=== PATIENT | female | born 1995 | race Caucasian/White ===

== ENCOUNTER 2018-11-01 07:47 | Day surgery (SDC) | payer BC ==
[~2018-11-01 07:47] MED LIST: Midazolam 1 MG/ML 2 ML SDV ONE; Propofol 200 MG/20 ML SDV ONE; fentaNYL 250 MCG/5 ML SDV ONE
[2018-11-01] MEDS ORDERED: Acetaminophen/HYDROcodone 325-5 MG Tab PO PRN (08:00)
[2018-11-01] MEDS ORDERED: ceFAZolin 2 GM in Premix Bag 1 BAG IV ONE (08:00)
[2018-11-01] MEDS ORDERED: Bupivacaine 0.25%/EPINEPHrine 1:200,000 10 ML SDV INJECT ONE (08:00)
[2018-11-01] MEDS ORDERED: Lactated Ringers 1,000 ML IV SCH (08:00)
[2018-11-01] MEDS ORDERED: Scopolamine 1.5 MG Transdermal Patch TRDERM PRN (08:40)
--- NOTE | 2018-11-01 08:57 | PCM.PREANE ---
Preanesthetic Assessment - Anesthesia/Transfusion/Family Hx Anesthesia History: Prior Anesthesia Without Reaction Type of Anesthesia Reaction: Other (see below) (ponv after ortho surgery as a child) Family History of Anesthesia Reaction: No Transfusion History: No Prior Transfusion(s) - Review of Systems General: No Symptoms Pulmonary: No Symptoms Cardiovascular: No Symptoms Gastrointestinal: No Symptoms Neurological: No Symptoms Other: Reports: Anxiety - Physical Assessment NPO Status Date: 10/31/18 Height: 5 ft 7 in Weight: 77.111 kg ASA Class: 2 Mental Status: Alert & Oriented x3 Airway Class: Mallampati = 1 Dentition: Reports: Normal Dentition ROM/Head Extension: Full Lungs: Clear to Auscultation, Normal Respiratory Effort Cardiovascular: Regular Rate, Regular Rhythm - Lab Values: Laboratory Last Values Urine HCG, Qual NEGATIVE (NEGATIVE) 11/01/18 08:30 - Allergies Allergies/Adverse Reactions: Allergies Allergy/AdvReac Type Severity Reaction Status Date / Time No Known Allergies Allergy Verified 10/29/18 12:40 - Blood Blood Available: No - Anesthesia Plan Pre-Op Medication Ordered: Anxiolytic (ativan po last night, versed in pre op holding, scop patch) - Acknowledgements Anesthesia Type Planned: General Anesthesia Pt an Appropriate Candidate for the Planned Anesthesia: Yes Alternatives and Risks of Anesthesia Discussed w Pt/Guardian: Yes Pt/Guardian Understands and Agrees with Anesthesia Plan: Yes Additional Comments: PMH: occasional smoker, anxiety PLAN: GET PreAnesthesia Questionnaire HEENT History: Reports: Other (See Below) Other HEENT History: wears contacts LOBBY CONCIERGE History: Reports: Other (See Below) Other OB/BYN History: polands syndrome Musculoskeletal History: Reports: Fracture Other Musculoskeletal History: polands syndrome - Past Surgical History Head Surgeries/Procedures: Reports: None HEENT Surgical History: Reports: Tonsillectomy Musculoskeletal Surgical History: Reports: ORIF Other Musculoskeletal Surgeries/Procedures:: ORIF rt arm - SUBSTANCE USE Smoking Status *Q: Current Some Day Smoker Tobacco Use Within Last Twelve Months: Cigarettes Recreational Drug Use History: No - HOME MEDS Home Medications: Home Meds Clindamycin Phosphate 1 swab TOP ASDIRECTED PRN 10/29/18 [History] Nuvaring 1 device VAG ONETIME 10/29/18 [History] Spironolactone 50 mg PO DAILY 10/29/18 [History] buPROPion HCl [Wellbutrin Xl] 150 mg PO DAILY 10/29/18 [History] - CURRENT (IN HOUSE) MEDS Current Meds: Current Medications Hydrocodone Bitart/Acetaminophen ([place] 325-5 Mg) 1 tab PO Q4H PRN PRN Reason: Pain Lactated Ringer's (Ringers, Lactated) 1,000 mls @ 125 mls/hr IV ASDIRECTED KIN Scopolamine (Transderm-Scop) 1.5 mg TRDERM Q72H PRN PRN Reason: Nausea/Vomiting Discontinued Medications Bupivacaine HCl/Epinephrine Bitart (Marcaine 0.25%/Epinephrine 1:200,000) 10 ml INJECT ONETIME ONE Stop: 11/01/18 08:01 Fentanyl (Sublimaze) Confirm Administered Dose 250 mcg .ROUTE .STK-MED ONE Stop: 11/01/18 07:21 Cefazolin Sodium/Dextrose 2 gm (/ Premix) 50 mls @ 100 mls/hr IV ONETIME ONE Stop: 11/01/18 08:29 Midazolam HCl (Versed 1 Mg/Ml) Confirm Administered Dose 2 mg .ROUTE .STK-MED ONE Stop: 11/01/18 07:21 Propofol (Diprivan 20 Ml) Confirm Administered Dose 200 mg .ROUTE .STK-MED ONE Stop: 11/01/18 07:21
[2018-11-01] MEDS ORDERED: Gentamicin 40 MG/ML 2 ML Vial ONE (09:03)
[2018-11-01] MEDS ORDERED: EPINEPHrine 1 MG/ML SDV ONE (09:03)
[2018-11-01] MEDS ORDERED: Bupivacaine 25%/EPINEPHrine/PF 30 ML ONE (09:04)
[2018-11-01] MEDS ORDERED: ceFAZolin 1 GM Vial ONE (09:04)
[2018-11-01] MEDS ORDERED: fentaNYL 100 MCG/2 ML SDV IVPUSH PRN (10:50)
[2018-11-01] MEDS ORDERED: Meperidine PF 25 MG/ML Syringe IVPUSH ONE (10:50)
[2018-11-01] MEDS ORDERED: Promethazine 25 MG/ML SDV IM ONE (10:50)
[2018-11-01] MEDS ORDERED: HYDROmorphone 2 MG/ML SDV IVPUSH ONE (10:50)
[2018-11-01] MEDS ORDERED: Ondansetron 4 MG/2 ML SDV IVPUSH ONE (10:50)
[2018-11-01] MEDS ORDERED: Ondansetron 4 MG/2 ML SDV ONE (11:27)
[2018-11-01] MEDS ORDERED: Dexamethasone 4 MG/ML 5 ML MDV ONE (11:27)
[2018-11-01] MEDS ORDERED: HYDROmorphone 2 MG/ML Syringe ONE (12:11)
[2018-11-01] MEDS ORDERED: Neostigmine Methylsulfate 1 MG/ML 5 ML Syringe ONE (12:16)
[2018-11-01] MEDS ORDERED: Glycopyrrolate 0.2 MG/ML SDV ONE (12:16)
[2018-11-01] MEDS: fentaNYL 100 MCG/2 ML SDV IVPUSH PRN ×4 (12:43→13:09)
--- NOTE | 2018-11-01 13:44 | PCM.POSTAN ---
POST ANESTHESIA ASSESSMENT - MENTAL STATUS Mental Status: Alert, Oriented - RESPIRATORY Respiratory Status: Respiratory Rate WNL, Airway Patent, O2 Saturation Stable - CARDIOVASCULAR CV Status: Pulse Rate WNL, Blood Pressure Stable - GASTROINTESTINAL GI Status: No Symptoms - PAIN Pain Score: 3 - POST OP HYDRATION Hydration Status: Adequate & Stable - OBSERVATIONS Free Text/Narrative:: Pt stable for discharge to phase II recovery.
[2018-11-01] MEDS ORDERED: Cyclobenzaprine 5 MG Tab PO ONE (14:05)
--- NOTE | 2018-11-04 12:29 | PCM.OPNOTE ---
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
--- NOTE | 2018-11-04 20:07 | OR ---
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 IT APPLICATIONS ANALYST: EDMOND Goff REASON FOR AND ROLE OF IT APPLICATIONS ANALYST: Retraction, prepping, draping, positioning and closure assistance. ANESTHESIA: General ET tube with local. INDICATIONS: Ms. Obrien is a 23-year-old female, seen today in evaluation for bilateral breast reconstruction. 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 Risks and benefits of breast reconstruction bilaterally with differential implants and radial scoring were discussed with her and she was in agreement to proceed. Risks were including, but not limited to, bleeding, infection, damage to underlying or overlying structures, possible need for future interventions, and possible scarring. Prior authorization was obtained from her insurance [employer] as well. PROCEDURE IN DETAIL: After informed consent was obtained and placed on the chart, the patient was brought to the operating theater and laid in supine position. After adequate general anesthesia was obtained, the area was prepped and draped, a time-out was completed to confirm side and site. Attention was first paid to the right breast. An inframammary fold incision was made approximately 6-1/2 cm from the nipple itself. Dissection was then carried into the submuscular plane on the right side. Pectoralis muscle was present and intact. Dissection was carried into the submuscular plane and the inferior aspect of the pectoralis muscle was transected under direct visualization using lighted mammary retractor and electrocautery. Once adequately transected, attention was then paid to copious irrigation of the developed submuscular pocket. Once adequately irrigated, 3 epinephrine-soaked laps were placed, and attention was then paid to dissection on the opposite breast. Attention was then paid to the left breast. An inframammary fold incision was also made here slightly lower than the current inframammary fold to allow expansion and lowering of the tuberous breast anomaly. This was made again 6.5 cm away from the nipple-areolar complex. Dissection was then carried into the submuscular plane and a submuscular pocket was developed. The inferior muscle was transected taking care to maintain the sternal attachments. Once adequately transected here, meticulous hemostasis was obtained and the remainder of the pocket was dissected. Once adequately dissected here and meticulous hemostasis had been obtained, the area was irrigated and 3 additional epinephrine-soaked laps were placed on the left side. Attention was paid to the subglandular dissection just above the muscle and radial scoring of the gland itself was undertaken. Once this was completed in a satisfactory pattern, an epinephrine-soaked lap was placed here. Attention was then paid back to the right breast and the pocket was again evaluated. Once adequately prepped, attention was then paid to removal of the epinephrine-soaked laps, meticulous hemostasis, and copious irrigation with triple antibiotic solution. 3-0 Vicryl sutures were used to secure the new inframammary fold and the lateral aspect of the breast. Once this was completed, the pocket was copiously irrigated with triple antibiotic solution and the right breast implant of SRX-560 was opened and prepared in the normal fashion. Serial #[id number]. Once adequately prepared, the Mitchell funnel was used in a no-touch technique to place this 560 mL silicone implant in the submuscular plane on the right. Once this was adequately placed, the skin was tacked closed and attention was paid to the left breast. The left breast SRM-445 Natrelle silicone implant was opened and prepped in the normal fashion. Serial #[id number]. Prior to placement of the final implant on the left, a Sizer was placed for assessment after the standard preparation of the pocket (lap removal, hemostasis, PDS secured borders and antibiotic irrigation). Once adequately prepared and size confirmed, attention was then paid to placement of the 445 mL silicone implant in the submuscular plane using a Mitchell funnel in a no-touch technique. Once adequately placed, the skin was tacked closed, and the patient was sat up into the supine position. Both breasts were appreciated to be very similar in size though shape will develop with time and skin stretch for the inherent asymmetry. Once adequate symmetry was appreciated with the permanent implants in place, the patient was laid back in the supine position and the skin was closed using a deep 3-0 Monocryl Stratafix for the fascia, dermis in a running subcuticular for the skin. Once adequately closed bilaterally, the wounds were dressed with Steri-Strips. The patient was placed in a compression bra. All counts and needles were correct at the end of the case and 0.25% Marcaine with epinephrine was used in a field block of the area for postoperative pain control. HEGGTSHREYA / NAYELIL /[id number] MTDD
== END 2018-11-01 15:35 | disposition home or self-care (01) ==
LOC: MW.SDS 07:47
PROVIDERS: ATTEND Plastic Surgery
DX: Q79.8 Other congenital malformations of musculoskeletal system (principal); Q83.8 Other congenital malformations of breast; F41.9 Anxiety disorder, unspecified; F32.9 Major depressive disorder, single episode, unspecified; F17.210 Nicotine dependence, cigarettes, uncomplicated; Z79.899 Other long term (current) drug therapy
CPT/HCPCS: 19325; 81025; A9270; C1789; J0171; J0690; J1100; J1170; J1580; J2250; J2405; J2704; J3010; J3490; J7120

== ENCOUNTER 2020-04-06 10:37 | Day surgery (SDC) | payer BC ==
--- NOTE | 2020-04-06 11:34 | PCM.PREANE ---
Preanesthetic Assessment - Anesthesia/Transfusion/Family Hx Anesthesia History: Prior Anesthesia Without Reaction Family History of Anesthesia Reaction: No Transfusion History: No Prior Transfusion(s) - Review of Systems General: No Symptoms Pulmonary: No Symptoms Cardiovascular: No Symptoms Gastrointestinal: No Symptoms Neurological: No Symptoms Other: Reports: None - Physical Assessment NPO Status Date: 04/05/20 Vital Signs: Last Vital Signs Temp 98.1 F 04/06/20 11:31 Pulse 90 04/06/20 11:31 Resp 16 04/06/20 11:31 BP 128/73 04/06/20 11:31 Pulse Ox 99 04/06/20 11:31 Height: 5 ft 7 in Weight: 80.286 kg ASA Class: 2 Mental Status: Alert & Oriented x3 Airway Class: Mallampati = 2 Dentition: Reports: Normal Dentition ROM/Head Extension: Full Lungs: Clear to Auscultation, Normal Respiratory Effort Cardiovascular: Regular Rate, Regular Rhythm - Lab Values: Laboratory Last Values WBC 10.38 K/uL (4.0-11.0) 04/05/20 11:42 RBC 4.56 M/uL (4.30-5.90) 04/05/20 11:42 Hgb 13.9 g/dL (12.0-16.0) 04/05/20 11:42 Hct 40.8 % (36.0-46.0) 04/05/20 11:42 MCV 89.5 fL (80.0-98.0) 04/05/20 11:42 MCH 30.5 pg (27.0-32.0) 04/05/20 11:42 MCHC 34.1 g/dL (31.0-37.0) 04/05/20 11:42 RDW Std Deviation 39.4 fl (28.0-62.0) 04/05/20 11:42 RDW Coeff of Sundeep 12 % (11.0-15.0) 04/05/20 11:42 Plt Count 228 K/uL (150-400) 04/05/20 11:42 MPV 9.50 fL (7.40-12.00) 04/05/20 11:42 Nucleated RBC % 0.0 /100WBC 04/05/20 11:42 Nucleated RBCs # 0 K/uL 04/05/20 11:42 Blood Type A POSITIVE 04/05/20 11:44 Antibody Screen NEGATIVE 04/05/20 11:44 - Allergies Allergies/Adverse Reactions: Allergies Allergy/AdvReac Type Severity Reaction Status Date / Time No Known Allergies Allergy Verified 04/05/20 13:11 - Blood Blood Available: No - Anesthesia Plan Pre-Op Medication Ordered: None - Acknowledgements Anesthesia Type Planned: General Anesthesia Pt an Appropriate Candidate for the Planned Anesthesia: Yes Alternatives and Risks of Anesthesia Discussed w Pt/Guardian: Yes Pt/Guardian Understands and Agrees with Anesthesia Plan: Yes Additional Comments: PMH: missed Ab at 10 weeks PLAN: ga/lma PreAnesthesia Questionnaire HEENT History: Reports: Other (See Below) Other HEENT History: wears contacts Cardiovascular History: Reports: None Respiratory History: Reports: None Gastrointestinal History: Reports: None Genitourinary History: Reports: None CADMIUM BURNER History: Reports: None Musculoskeletal History: Reports: Fracture, Other (See Below) Other Musculoskeletal History: polands syndrome Neurological History: Reports: None Psychiatric History: Reports: Anxiety, Depression Endocrine/Metabolic History: Reports: None Hematologic History: Reports: None Immunologic History: Reports: None Oncologic (Cancer) History: Reports: None Dermatologic History: Reports: None - Past Surgical History Head Surgeries/Procedures: Reports: None HEENT Surgical History: Reports: Tonsillectomy Cardiovascular Surgical History: Reports: None Respiratory Surgical History: Reports: None GI Surgical History: Reports: None Female Surgical History: Reports: Breast Implant Endocrine Surgical History: Reports: None Neurological Surgical History: Reports: None Musculoskeletal Surgical History: Reports: ORIF Other Musculoskeletal Surgeries/Procedures:: ORIF rt arm Oncologic Surgical History: Reports: None Dermatological Surgical History: Reports: None - SUBSTANCE USE Smoking Status *Q: Former Smoker Tobacco Use Within Last Twelve Months: No - HOME MEDS Home Medications: Home Meds . [No Known Home Meds] 04/05/20 [History]
[2020-04-06] MEDS ORDERED: Midazolam 1 MG/ML 2 ML SDV IVPUSH ONE (11:35)
[2020-04-06] MEDS ORDERED: fentaNYL 100 MCG/2 ML SDV ONE (11:39)
[2020-04-06] MEDS ORDERED: Propofol 200 MG/20 ML SDV ONE (11:39)
[2020-04-06] MEDS ORDERED: Midazolam 1 MG/ML 2 ML SDV ONE (11:39)
[2020-04-06] MEDS ORDERED: Lactated Ringers 1,000 ML IV SCH (11:45)
[2020-04-06] MEDS ORDERED: Methylergonovine 0.2 MG/1 ML Amp ONE (12:36)
--- NOTE | 2020-04-06 12:46 | PCM.OPNOTE ---
- General Post-Op/Procedure Note Date of Surgery/Procedure: 04/06/20 Operative Procedure(s): suction dilation and curettage Findings: preop 10 week size uterus boggy, cervix closed, postop 6 week size firm, minimal bleeding Pre Op Diagnosis: 10 week missed Post-Op Diagnosis: Same Anesthesia Technique: General ET Tube Primary Surgeon: Niru Raymundo Secondary Surgeon: Andrea Rao Anesthesia Provider: Seth Muñoz Winding Operator: Jazmine Valdes Pathology: products of conception Fluid Replacement, Intraop: 1,000 EBL in mLs: 300 Complications: None Known Condition: Good
[2020-04-06] MEDS ORDERED: Acetaminophen 1,000 MG in Premix Bag 1 BAG IV ONE (13:19)
[2020-04-06] MEDS ORDERED: Haloperidol Lactate 5 MG/ML SDV IM ONE (13:44)
--- NOTE | 2020-04-06 14:48 | PCM48HPAN ---
Post Anesthesia Note - EVALUATION WITHIN 48HRS OF ANESTHETIC Vital Signs in Normal Range: Yes Patient Participated in Evaluation: Yes Respiratory Function Stable: Yes Airway Patent: Yes Cardiovascular Function Stable: Yes Hydration Status Stable: Yes Pain Control Satisfactory: Yes Nausea and Vomiting Control Satisfactory: Yes Mental Status Recovered: Yes Vital Signs: Last Vital Signs Temp 97.5 F 04/06/20 13:11 Pulse 84 04/06/20 13:41 Resp 14 04/06/20 13:41 BP 100/63 04/06/20 13:41 Pulse Ox 98 04/06/20 13:41
--- NOTE | 2020-04-06 14:48 | PCM.POSTAN ---
POST ANESTHESIA ASSESSMENT - MENTAL STATUS Mental Status: Alert, Oriented - VITAL SIGNS Vital Signs: Last Vital Signs Temp 97.5 F 04/06/20 13:11 Pulse 84 04/06/20 13:41 Resp 14 04/06/20 13:41 BP 100/63 04/06/20 13:41 Pulse Ox 98 04/06/20 13:41 - RESPIRATORY Respiratory Status: Respiratory Rate WNL, Airway Patent, O2 Saturation Stable - CARDIOVASCULAR CV Status: Pulse Rate WNL, Blood Pressure Stable - GASTROINTESTINAL GI Status: No Symptoms - POST OP HYDRATION Hydration Status: Adequate & Stable
--- NOTE | 2020-04-06 19:28 | OR ---
SURGEON: Niru Raymundo M.D. DATE OF PROCEDURE: 04/06/2020 PREOPERATIVE DIAGNOSIS: A 10-week missed . POSTOPERATIVE DIAGNOSIS: A 10-week missed . PROCEDURE: Suction dilatation and curettage. PRIMARY SURGEON: Niru Raymundo MD SUPERVISOR KENNEL: GASTON Bahena. ANESTHESIA: General endotracheal. FLUIDS: 1000 mL of crystalloid. ESTIMATED BLOOD LOSS: 300 mL. FINDINGS: Preoperatively, uterus anteverted, 10-week size, somewhat boggy. Postoperatively, uterus firm, 6-week size. Ultrasound guidance was utilized for the procedure. Preoperatively, there was a 10-week size fetus with absent cardiac activity. Postoperatively, empty uterine cavity with no retained products of conception. COMPLICATIONS: None known. DISPOSITION: Stable to Recovery. BRIEF HISTORY: This is a 24-year-old female. She is G2, P0. She presented at 10 weeks' gestation for a new OB visit. She had her initial ultrasound and there was an absent heart beat. She was provided with options including Cytotec, expectant management, or D and C with risks of each were reviewed. She prefers to proceed with a suction D and C with risks discussed including bleeding; infection; injury to bowel, bladder, blood vessels, ureters, or other organs; risk of thromboembolic event; risk of anesthesia; risk of uterine perforation; risk of Asherman syndrome. Understanding all these risks, she does desire to proceed. Additionally, she did consent to the participation of the med student during the procedure, including consent for exam under anesthesia. DESCRIPTION OF PROCEDURE: With the patient in dorsal lithotomy position, under adequate general endotracheal anesthesia, the perineum and vagina were prepped with Betadine and draped in usual fashion for vaginal surgery. SCDs were in place. The bladder had been drained with a red Gonzalez catheter. An appropriate time-out was held. After appropriately prepping and draping, bimanual examination revealed a boggy 10-week size uterus. Under ultrasound guidance, the cervix was dilated to a 10 mm Hegar dilator. It sounded to 10 cm. The 10 mm straight suction curette was then placed to the uterine fundus and under direct ultrasound guidance retracted multiple times until most of the tissue was pulled down to the cervical os. It was then grasped with ring forceps and removed. At this time, there was apparently no retained products. However, additional passes were taken with the straight curette and then a very gentle sharp curettage was performed at the 12, 3, 6, and 9 o'clock position with a good uterine cry felt on all surfaces and an additional pass was taken with the curette. A final picture was taken with ultrasound showing an empty uterine cavity. Methergine 0.2 mg IM had been given with this. There was minimal bleeding. The uterus was firm and all the instruments removed from the vagina. Final sponge, needle, and instrument counts were reported as correct. There were no known complications. The patient was transferred to Recovery in good condition. CRISTINA / VJ /[id number]
== END 2020-04-06 15:00 | disposition home or self-care (01) ==
LOC: MW.SDS 10:37
PROVIDERS: ATTEND Obstetrics & Gynecology
DX: O02.1 Missed abortion (principal); F41.9 Anxiety disorder, unspecified; F32.9 Major depressive disorder, single episode, unspecified; Z87.891 Personal history of nicotine dependence
CPT/HCPCS: 36415; 59820; 76998; 85027; 86850; 86900; 86901; 88305; J0131; J1630; J2210; J2250; J2704; J3010; J7120

== ENCOUNTER 2022-04-06 14:20 | Inpatient (IN) | payer BC ==
[2022-04-06] MEDS ORDERED: Misoprostol 25 MCG (1/4 of 100 MCG) Tab VAG PRN (15:07)
[2022-04-06] MEDS ORDERED: Terbutaline 1 MG/ML SDV SUBCUT PRN (15:07)
[2022-04-06] MEDS ORDERED: Water For Irrigation,Sterile 1,000 ML Container IRR PRN (15:07)
[2022-04-06] MEDS ORDERED: Sodium Chloride 0.9% 10 ML Syringe FLUSH PRN (15:07)
[2022-04-06] MEDS ORDERED: Butorphanol 1 MG/ML SDV IVPUSH PRN (15:07)
[2022-04-06] MEDS ORDERED: Sodium Chloride 0.9% 2.5 ML Syringe FLUSH PRN (15:07)
[2022-04-06] MEDS ORDERED: Methylergonovine 0.2 MG/1 ML Amp IM PRN (15:07)
[2022-04-06] MEDS ORDERED: Tranexamic Acid 1,000 MG in Sodium Chloride 0.9% 100 ML IV PRN (15:07)
[2022-04-06] MEDS ORDERED: Lidocaine 1% 50 ML MDV INJECT PRN (15:07)
[2022-04-06] MEDS ORDERED: Ondansetron 4 MG/2 ML SDV IVPUSH PRN (15:07)
[2022-04-06] MEDS ORDERED: Carboprost Tromethamine 250 MCG/1 ML Amp IM PRN (15:07)
[2022-04-06] MEDS ORDERED: Misoprostol 200 MCG Tab PO PRN (15:07)
[2022-04-06] MEDS ORDERED: Sodium Chloride 0.9% 20 ML SDV IV PRN (15:07)
[2022-04-06] MEDS ORDERED: Oxytocin/0.9 % Sodium Chloride 30 UNIT/500 ML BAG IV SCH ×2 (15:15)
[2022-04-06] MEDS ORDERED: ePHEDrine 50 MG/ML SDV IVPUSH PRN ×2 (15:29)
[2022-04-06] MEDS ORDERED: Ropivacaine HCl/PF 400 MG in Premix Bag 1 BAG EPIDUR SCH (15:30)
[2022-04-06] MEDS: Lactated Ringers 1,000 ML IV SCH (15:35)
[2022-04-06] MEDS: Misoprostol 25 MCG (1/4 of 100 MCG) Tab VAG PRN (20:06)
[2022-04-07] MEDS: Lactated Ringers 1,000 ML IV SCH ×2 (00:11→08:18)
[2022-04-07] MEDS: Misoprostol 25 MCG (1/4 of 100 MCG) Tab VAG PRN ×2 (00:11→04:09)
[2022-04-07] MEDS ORDERED: Oxytocin/0.9 % Sodium Chloride 30 UNIT/500 ML BAG IV ONE (13:04)
[2022-04-07] MEDS ORDERED: ceFAZolin 1 GM Vial ONE (15:04)
[2022-04-07] MEDS ORDERED: Oxytocin 10 Units/1 ML SDV ONE ×3 (15:07→15:08)
[2022-04-07] MEDS ORDERED: Lidocaine 2% 5 ML SDV ONE ×2 (15:08)
[2022-04-07] MEDS ORDERED: Lidocaine 2% 100 MG/5 ML Syringe ONE (15:08)
[2022-04-07] MEDS ORDERED: Albuterol 0.083% 2.5 MG/3 ML Neb Soln NEB PRN (15:23)
[2022-04-07] MEDS ORDERED: Metoclopramide 10 MG/2 ML SDV IVPUSH PRN (15:23)
[2022-04-07] MEDS ORDERED: fentaNYL 50 MCG/ML SDV IVPUSH PRN (15:23)
[2022-04-07] MEDS ORDERED: Morphine 4 MG/ML VIAL IVPUSH PRN (15:23)
[2022-04-07] MEDS ORDERED: HYDROmorphone 1 MG/ML Syringe IVPUSH PRN (15:23)
[2022-04-07] MEDS ORDERED: diphenhydrAMINE 50 MG/ML SDV IVPUSH PRN ×2 (15:23→16:12)
[2022-04-07] MEDS ORDERED: fentaNYL 100 MCG/2 ML SDV IVPUSH PRN (15:23)
[2022-04-07] MEDS ORDERED: ePHEDrine 50 MG/ML SDV IVPUSH PRN (15:23)
[2022-04-07] MEDS ORDERED: Naloxone 0.4 MG/ML SDV IVPUSH PRN (15:23)
[2022-04-07] MEDS ORDERED: Acetaminophen/oxyCODONE 325-5 MG Tab PO PRN ×3 (15:23→16:12)
[2022-04-07] MEDS ORDERED: Ondansetron 4 MG/2 ML SDV IVPUSH PRN ×3 (15:23→16:12)
[2022-04-07] MEDS ORDERED: Morphine PF 10 MG/10 ML SDV ONE (15:53)
[2022-04-07] MEDS ORDERED: Lanolin 100% Cream 7 GM Tube TOP PRN (16:12)
[2022-04-07] MEDS ORDERED: Oxytocin 10 Units/1 ML SDV IM PRN (16:12)
[2022-04-07] MEDS ORDERED: Tranexamic Acid 1,000 MG in Sodium Chloride 0.9% 100 ML IV PRN (16:12)
[2022-04-07] MEDS ORDERED: Bisacodyl 10 MG Supp RECTAL PRN (16:12)
[2022-04-07] MEDS ORDERED: Misoprostol 200 MCG Tab RECTAL PRN (16:12)
[2022-04-07] MEDS ORDERED: Lactated Ringers 1,000 ML IV SCH (16:15)
[2022-04-07] MEDS ORDERED: Dexamethasone 4 MG/ML 5 ML MDV ONE (16:18)
[2022-04-07] MEDS: Ketorolac 30 MG/ML SDV IVPUSH SCH ×2 (17:24→22:32)
[2022-04-07] MEDS ORDERED: Acetaminophen 1,000 MG in Premix Bag 1 BAG IV ONE ×5 (21:00)
[2022-04-07] MEDS: Docusate Sodium 100 MG Cap PO SCH (21:08)
[2022-04-08] MEDS: Ketorolac 30 MG/ML SDV IVPUSH SCH ×3 (04:48→18:13)
[2022-04-08] MEDS: Docusate Sodium 100 MG Cap PO SCH ×2 (08:03→21:36)
[2022-04-08] MEDS ORDERED: Ibuprofen 800 MG Tab PO PRN (22:15)
[2022-04-09] MEDS: Docusate Sodium 100 MG Cap PO SCH (08:54)
== END 2022-04-09 12:00 | disposition home or self-care (01) | DRG 540 ==
LOC: MW.OBCHECK 14:20 → MW.OB 14:32 → MW.OBCHECK 15:06 → MW.OB 15:07 → OBSVTOIN 04-07 15:38 → MW.OB 04-07 18:33
PROVIDERS: ADMIT Obstetrics & Gynecology; ATTEND Obstetrics & Gynecology
PROC: 10D00Z1 Extraction of Products of Conception, Low, Open Approach (ICD-10-PCS; principal; 2022-04-07)
PROC: 3E033VJ Introduction of Other Hormone into Peripheral Vein, Percutaneous Approach (ICD-10-PCS; 2022-04-07)
PROC: 3E0R3BZ Introduction of Anesthetic Agent into Spinal Canal, Percutaneous Approach (ICD-10-PCS; 2022-04-07)
PROC: 00HU33Z Insertion of Infusion Device into Spinal Canal, Percutaneous Approach (ICD-10-PCS; 2022-04-07)
DX: O13.4 Gestational [pregnancy-induced] hypertension without significant proteinuria, complicating childbirth (principal); Z3A.38 38 weeks gestation of pregnancy; Z37.0 Single live birth; O76 Abnormality in fetal heart rate and rhythm complicating labor and delivery; Z20.822 Contact with and (suspected) exposure to COVID-19
CPT/HCPCS: 01967; 36415; 59025; 82803; 85014; 85018; 85027; 86592; 86850; 86900; 86901; A9270-GY; J0131; J0595; J0690; J1100; J1790; J1885; J2274; J2370; J2405; J2590; J7120; U0002